=== PATIENT | female | born 1995 | race Caucasian/White ===

== ENCOUNTER 2016-07-13 22:16 | Emergency (ER) | payer OTHER | END 2016-07-14 01:00 | disposition home or self-care (01) | LOC: ER 22:16 | DX: M54.5 Low back pain (principal); M54.2 Cervicalgia; G89.29 Other chronic pain; F41.0 Panic disorder [episodic paroxysmal anxiety]; Z79.899 Other long term (current) drug therapy; Z88.5 Allergy status to narcotic agent | CPT/HCPCS: 99282 ==

== ENCOUNTER 2016-07-19 22:47 | Emergency (ER) | payer OTHER | END 2016-07-20 00:52 | disposition home or self-care (01) | LOC: ER 22:47 | DX: M54.2 Cervicalgia (principal); R51 Headache; F41.9 Anxiety disorder, unspecified; Z79.899 Other long term (current) drug therapy; Z88.1 Allergy status to other antibiotic agents; Z88.6 Allergy status to analgesic agent | CPT/HCPCS: 99282 ==

== ENCOUNTER 2016-07-29 23:38 | Emergency (ER) | payer OTHER | END 2016-07-30 01:20 | disposition home or self-care (01) | LOC: ER 23:38 | DX: M54.9 Dorsalgia, unspecified (principal); G89.29 Other chronic pain; Z79.899 Other long term (current) drug therapy; Z88.1 Allergy status to other antibiotic agents; Z88.6 Allergy status to analgesic agent | CPT/HCPCS: 99282 ==